=== PATIENT | female | born 1975 | race Caucasian/White ===

== ENCOUNTER 2016-06-28 23:21 | Inpatient (IN) | payer MEDICARE ==
--- NOTE | ~2016-06-28 | PN ---
Unit #: [id number] #: [id number] Patient: COURTNEY DRAKE [id number] [facility] [address] [place] [address] [id number] MR#: [id number] NAME: COURTNEY DRAKE ROOM: P202 Age: 41 Sex: F Admission Date: 06/28/2016 : 1975 Attending Physician: Ford Gonzalez M.D. Admitting Physician: Ford Gonzalez M.D. Primary Care Physician: Generic Doctor Not In System [facility] PROGRESS NOTES DATE OF SERVICE: 07/02/2016 SUBJECTIVE Ms. Drake is a 41-year-old white female, who was seen today and chart was reviewed, and case was discussed with the staff. She has been anxious, withdrawn, though has not shown any agitation or irritability. She has been cooperative with the treatment recommendations and has been taking the medications and tolerating them fairly well with no reported side effects. MENTAL STATUS EXAMINATION Middle-aged white female, who was casually dressed with fair personal hygiene, appears to be in no acute distress or discomfort. She was awake and alert on interaction with intact orientation. Her mood was anxious with a congruent affect. Her speech was slow and goal directed. She denies any suicidal or homicidal ideations, and also denies any auditory or visual hallucinations. Her insight and judgment remain slightly impaired. TREATMENT PLAN 1. We will continue her on her current medications and treatment protocol. We will monitor her response to the medications and make further adjustments as needed. 2. We will continue to follow up. Dictated by... Michael Jackson/orionl TD: 07/02/2016 23:19 JOB #: [id number] Unit #: [id number] #: [id number] Patient: COURTNEY DRAKE [facility] PROGRESS NOTES X Ford Gonzalez MD PROGRESS NOTE
--- NOTE | ~2016-06-28 | PN ---
Unit #: [id number] #: [id number] Patient: COURTNEY DRAKE [id number] [facility] [address] [place] [address] [id number] I MR#: [id number] NAME: COURTNEY DRAKE ROOM: P202 Age: 41 Sex: F Admission Date: 06/28/2016 : 1975 Attending Physician: Ford Gonzalez M.D. Admitting Physician: Ford Gonzalez M.D. Primary Care Physician: Generic Doctor Not In System [facility] PROGRESS NOTES DATE OF SERVICE: 07/01/2016 SUBJECTIVE Ms. Drake is a 41-year-old white female who was seen today and chart was reviewed, and case was discussed with the staff. She has been anxious, withdrawn, and rather seclusive to herself and appears to be in some distress and discomfort. Meanwhile, she has been taking the medications and tolerating them fairly well. MENTAL STATUS EXAMINATION Young white female who was casually dressed with fair personal hygiene, appears to be in no acute distress or discomfort. She was awake and alert on interaction with intact orientation. Her mood was anxious with a congruent affect. She denies any suicidal or homicidal ideations. Her insight and judgment remain slightly impaired. TREATMENT PLAN 1. We will continue on her current medications and treatment protocol. We will monitor her response to the medications and make further adjustments as needed. 2. We will continue to follow up. Dictated by... Michael Jackson/orionl TD: 07/02/2016 03:51 JOB #: [id number] [facility] PROGRESS NOTES X Ford Gonzalez MD PROGRESS NOTE
--- NOTE | ~2016-06-28 | PN ---
Unit #: [id number] #: [id number] Patient: COURTNEY DRAKE [id number] [facility] [address] [place] [address] [id number] I MR#: [id number] NAME: COURTNEY DRAKE ROOM: P202 Age: 41 Sex: F Admission Date: 06/28/2016 : 1975 Attending Physician: Ford Gonzalez M.D. Admitting Physician: Ford Gonzalez M.D. Primary Care Physician: Generic Doctor Not In System [facility] PROGRESS NOTES SUBJECTIVE Ms. Drake is a 41-year-old white female who was seen today and chart was reviewed and case was discussed with the staff. She has been anxious, withdrawn, and rather seclusive to herself. Meanwhile, she has been cooperative with treatment recommendation and has been taking the medications though she has been seclusive to herself and describes herself to be in distress or discomfort. MENTAL STATUS EXAMINATION Middle-aged white female who was casually dressed with fair personal hygiene and appears to be in no acute distress or discomfort. She was awake and alert with impaired attention and concentration. Her mood was anxious with a congruent affect. She denies suicidal or homicidal ideations. Her insight and judgment remain significantly impaired. TREATMENT PLAN 1. We will continue on her current medications and treatment protocol. We will monitor her response to the medications and make further adjustments as needed. 2. We will continue to follow up. Dictated by... Michael Jackson/riki TD: 07/01/2016 05:21 JOB #: [id number] [facility] PROGRESS NOTES X Ford Gonzalez MD PROGRESS NOTE
--- NOTE | ~2016-06-28 | HP ---
Unit #: [id number] #: [id number] Patient: MARSHA JULES [id number] [place] [address] [id number] I MR#: [id number] NAME: MARSHA JULES ROOM: P202 Age: 41 Sex: F Admission Date: 06/28/2016 : 1975 Attending Physician: Ford Gonzalez M.D. Admitting Physician: Ford Gonzalez M.D. Primary Care Physician: Generic Doctor Not In System HISTORY AND PHYSICAL HISTORY OF PRESENT ILLNESS Marsha is a 41 year old admitted to [address] [place] [address] because of her drug use. She smokes crack. PAST MEDICAL HISTORY History of illicit substance abuse to include crack cocaine and pain pills. PAST SURGICAL HISTORY 1. Ectopic 2. Hiatal hernia repair 3. Pelvic lap ALLERGIES No known drug allergies. SOCIAL HISTORY Smokes one pack per day. Denies alcohol. Admits to a history of illicit substance abuse. FAMILY HISTORY Medically noncontributory. REVIEW OF SYSTEMS CONSTITUTIONAL: No fever or chills. HEENT: Denies any sore throat, ear pain or runny nose. CARDIOVASCULAR: Denies chest pain, irregular heart rhythm or palpitations. CHEST: Denies shortness of breath or cough. No hemoptysis. GASTROINTESTINAL: Denies nausea, vomiting, diarrhea or chronic constipation. ENDOCRINE: Denies history of increased thirst or urination. No recent significant weight loss or gain. GENITOURINARY: Denies dysuria, frequency, or hematuria. SKIN: Denies any rashes. HEMATOLOGIC: Denies history of increased bleeding or bruising. MUSCULOSKELETAL: Denies any hot, swollen joints. No generalized muscle pain. NEUROLOGIC: Denies problems with vision or speech. No frequent, severe headaches. No numbness, tingling or weakness in any extremities. Denies loss of bladder or bowel control. CURRENT MEDICATIONS Unit #: [id number] #: [id number] Patient: MARSHA JULES 1. Eskalith 600 mg q.a.m. 2. Lamictal 200 mg q.a.m. 3. Cipro 500 mg 1 p.o. b.i.d. times three days 4. Milk of Magnesia p.r.n. 5. Maalox p.r.n. 6. Tylenol p.r.n. PHYSICAL EXAMINATION GENERAL: Alert, well-nourished, in no apparent distress. VITAL SIGNS: Blood pressure 120/80, heart rate 80, respirations 16, temperature 98.6. WEIGHT: 162 pounds. HEIGHT: 5'1". SKIN: Warm and dry without rash or lesion. HEENT: Normocephalic. TMs not viewed. Oral and nasal passages clear. Conjunctivae clear. Pupils equal, round and reactive to light and accommodation. Extraocular movements intact. NECK: Supple without lymphadenopathy or thyromegaly. HEART: Regular rate and rhythm without murmur. LUNGS: Clear. ABDOMEN: Soft, nontender. : Not done. EXTREMITIES: No evidence of cyanosis, clubbing or edema. Moves all extremities without focal deficit. NEUROLOGICAL: Grossly within normal limits. Cranial Nerves: II: Visual verde are intact. III, IV AND : Extraocular movements are intact. Pupils are equal, round and reactive to light. V: Facial sensation is grossly normal. VII: Facial movements and expression are normal. VIII: Auditory acuity grossly intact. IX, X: Uvula is midline. Phonation is normal. XI: Patient shrugs shoulders and turns head normally. XII: Tongue protrudes in the midline. Sensory and Motor Function: Sensory and motor sensation is grossly normal. Motor: moves all extremities well. Coordination: Gait is normal. Deep Tendon Reflexes: Intact. IMPRESSION 1. Psychiatric admission 2. Patient is being treated for UTI RECOMMENDATIONS PSYCHIATRIC: Per psychiatrist. MEDICAL: 1. I see no contraindications to participating in facility's activities. 2. Finish Cipro. MEDICAL PROGNOSIS Good. MEDICAL CONDITION Stable. Dictated by... Unit #: [id number] #: [id number] Patient: MARSHA JULES Nahed Mixon, P.A.-C. for Michael Wilkerson/wayne TD: 06/29/2016 23:51 JOB #: [id number] HISTORY AND PHYSICAL X Nahed Mixon X HISTORY AND PHYSICAL
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
--- NOTE | ~2016-06-28 | PN ---
Unit #: [id number] #: [id number] Patient: COURTNEY DRAKE [id number] [facility] [address] [place] [address] [id number] I MR#: [id number] NAME: COURTNEY DRAKE ROOM: P202 Age: 41 Sex: F Admission Date: 06/28/2016 : 1975 Attending Physician: Ford Gonzalez M.D. Admitting Physician: Ford Gonzalez M.D. Primary Care Physician: Generic Doctor Not In System [facility] PROGRESS NOTES DATE OF SERVICE: 07/04/2016 SUBJECTIVE Ms. Drake is a 41-year-old white female who was seen today and chart was reviewed and case was discussed with the staff. She has been doing fairly well and has been showing improvement in her mood and functioning and has been compliant with treatment recommendations. MENTAL STATUS EXAMINATION Middle-aged white female who was casually dressed with fair personal hygiene, appears to be in no acute distress or discomfort. She was awake and alert with intact orientation. Her mood was anxious with a congruent affect. She denies any suicidal or homicidal ideations. Her insight and judgment remain slightly impaired. TREATMENT PLAN 1. We will continue her on her current medications and treatment protocol. We will monitor her response and make further adjustments as needed. 2. We will continue to follow up. Dictated by... Michael Jackson/riki TD: 07/05/2016 19:34 JOB #: [id number] [facility] PROGRESS NOTES Page 1 of 1 X Ford Gonzalez MD PROGRESS NOTE
--- NOTE | ~2016-06-28 | PN ---
Unit #: [id number] #: [id number] Patient: COURTNEY DRAKE [id number] [facility] [address] [place] [address] [id number] MR#: [id number] NAME: COURTNEY DRAKE ROOM: P202 Age: 41 Sex: F Admission Date: 06/28/2016 : 1975 Attending Physician: Ford Gonzalez M.D. Admitting Physician: Ford Gonzalez M.D. Primary Care Physician: Generic Doctor Not In System [facility] PROGRESS NOTES DATE 07/03/2016 DISCUSSION Ms. Drake is a 41-year-old white female who was seen today and chart was reviewed and case was discussed with the staff. She has been anxious, withdrawn though has been polite and pleasant and cooperative with treatment recommendations appears to be showing significant improvement in her mood and functioning. She has been taking the medications and tolerating them fairly well. MENTAL STATUS EXAMINATION Middle-aged white female who was casually dressed with fair personal hygiene, appears to be in no acute distress or discomfort. She was awake and alert on interaction with intact orientation. Her mood was anxious with congruent affect. She denies any suicidal or homicidal ideations. Her insight and judgement remains slightly impaired. TREATMENT PLAN 1. We will continue her on her current medications and treatment protocol. We will monitor her response to the medication and make further adjustments as needed. 2. We will continue to follow up. Dictated by... Michael Jackson/wayne TD: 07/05/2016 02:08 JOB #: [id number] Unit #: [id number] #: [id number] Patient: COURTNEY DRAKE [facility] PROGRESS NOTES X Ford Gonzalez MD X PROGRESS NOTE
--- NOTE | ~2016-06-28 | DS ---
Unit #: [id number] #: [id number] Patient: COURTNEY DRAKE [id number] [facility] [address] [place] [address] [id number] I MR#: [id number] NAME: COURTNEY DRAKE ROOM: P202 Age: 41 Sex: F Admission Date: 06/28/2016 : 1975 Discharge Date: 07/05/2016 Attending Physician: Ford Gonzalez M.D. Primary Care Physician: Generic Doctor Not In System DISCHARGE SUMMARY IDENTIFYING DATA Ms. Drake is a 41-year-old single disabled white female, who is a resident of [place], [place], and was transferred to us from [facility] in [place], [place]. DISCHARGE DIAGNOSES Psychiatric: Bipolar disorder, most recent episode depressed, recurrent, moderate, with psychosis; cocaine dependence, moderate; cannabis dependence, moderate. Medical: None. Stressors: Moderate psychosocial stressors. HISTORY OF PRESENT ILLNESS Please see initial psychiatric evaluation for details. PAST PSYCHIATRIC HISTORY Please see initial psychiatric evaluation for details. PAST MEDICAL HISTORY Please see initial psychiatric evaluation for details. HOSPITAL COURSE The patient was admitted to the adult psychiatric unit at [facility] n[facility] and was oriented to the hospital environment. Routine p.r.n. medications were initiated, and she was started back on her home medications and medications were adjusted and she was closely monitored. She was initially seen to be very withdrawn, depressed, and rather seclusive to herself and not interacting, socializing; however, she was polite and pleasant and cooperative with treatment recommendations and was taking medications regularly and was tolerating them fairly well and was able to show a decent and therapeutic response and as such, it was decided that she will be discharged home and will continue treatment on an outpatient basis. DISCHARGE MEDICATIONS Lamictal 200 mg in the morning for bipolar, lithium 450 mg b.i.d. for bipolar, Effexor XR 150 mg in the morning for depression. DISCHARGE CONDITION Stable. PROGNOSIS Fair. Unit #: [id number] #: [id number] Patient: COURTNEY DRAKE Dictated by... Ford Gonzalez M.D. IAA/modl TD: 07/05/2016 07:06 JOB #: [id number] DISCHARGE SUMMARY X Ford Gonzalez MD DISCHARGE SUMMARY
[2016-06-29 09:28] LABS: BASOPHIL% 0.2 % (0-2.5); EOSINOPHIL# 0.1 X10e3 (0-0.7); EOSINOPHIL% 1.8 % (0.0-7.0); HEMOGLOBIN 14.4 gm/dL (12.0-16.0); LYMPHOCYTE# 2.2 X10e3 (1.0-3.5); LYMPHOCYTE% 28.6 % (17.0-45.0); MEAN CELL VOLUME 89.4 FL (83-96); MEAN CORPUSCULAR HEMOGLOBIN 29.3 PG (28-34); MEAN CORPUSCULAR HGB CONC 32.7 g/dL (30-36); MONOCYTE# 0.7 X10e3 (0-1.0); MONOCYTE% 8.7 % (3.0-12.0); NEUTROPHIL# 4.7 X10e3 (1.5-7.1); NEUTROPHIL% 60.7 % (40-75); PLATELET COUNT 288 X10e3 (140-420); RED BLOOD COUNT 4.92 X10e (3.90-5.30); WHITE BLOOD COUNT 7.7 X10e3 (4.0-10.5)
[2016-06-29 09:38] LABS: DIFF IND NO
[2016-06-29 09:57] LABS: THYROID STIMULATING HORMONE 1.01 uIU/ml (0.34-5.60)
[2016-06-29 10:05] LABS: FREE THYROXIN (T4) 0.71 ng/dL (0.58-1.64)
[2016-06-29 10:09] LABS: ALBUMIN SERUM 3.4 g/dL (3.5-5.0); ALKALINE PHOSPHATASE 80 U/L (32-92); ALT (SGPT) 21 U/L (10-40); AST (SGOT) 23 U/L (10-42); BILIRUBIN,TOTAL 0.5 mg/dL (0.2-2.0); BLOOD UREA NITROGEN 11 mg/dL (9-23); BUN/CREATININE RATIO 13.75; CALCIUM SERUM 8.9 mg/dL (8.4-10.2); CARBON DIOXIDE 24 mmol/L (22-31); CHLORIDE 104 mmol/L (100-111); CREATININE SERUM 0.8 mg/dL (0.6-1.4); GLOM FILT RATE Estimated ABOVE60 mL/min (>60); GLUCOSE FASTING 99 mg/dL (70-110); POTASSIUM 3.1 mmol/L (3.5-5.1); PROTEIN TOTAL SERUM 5.9 g/dL (6.0-8.3); SODIUM 140 mmol/L (135-145)
[2016-06-30 12:38] LABS: URINE APPEARANCE CLOUDY; URINE BILIRUBIN NEG (NEG); URINE BLOOD NEG (NEG); URINE COLOR YELLOW; URINE GLUCOSE NEG (NEG); URINE KETONE NEG (NEG); URINE LEUKOCYTE ESTERASE NEG (NEG); URINE NITRATE NEG (NEG); URINE PROTEIN NEG (NEG); URINE SPECIFIC GRAVITY 1.015 (1.003-1.035); URINE UROBILINOGEN 0.2 MG/DL (NEG)
[2016-06-30 13:17] LABS: AMPHETAMINE NEG (NEG); BARBITURATES NEG (NEG); BENZODIAZEPINES NEG (NEG); COCAINE POS (NEG); MARIJUANA NEG (NEG); OPIATES POS (NEG); TRICYCLIC ANTIDEPRESSANTS NEG (NEG); U METHADONE NEG (NEG)
== END 2016-07-05 10:15 | disposition home or self-care (01) | DRG 885 ==
LOC: P2S 23:21
PROVIDERS: Psychiatry & Neurology Psychiatry
PROC: HZ2ZZZZ Detoxification Services for Substance Abuse Treatment (ICD-10-PCS; principal; 2016-06-28)
DX: F31.5 Bipolar disorder, current episode depressed, severe, with psychotic features (principal); F14.20 Cocaine dependence, uncomplicated; F12.20 Cannabis dependence, uncomplicated; F17.210 Nicotine dependence, cigarettes, uncomplicated
CPT/HCPCS: 80053; 80178; 80307; 81003; 84439; 84443; 85025